=== PATIENT | female | born 1940 | race Caucasian/White ===

== ENCOUNTER → 2016-11-20 | Outpatient (REF) | payer MEDICARE, BC ==
[2016-11-20 13:29] LABS: ALBUMIN 4.4 GM/DL (3.2-5.2); ALBUMIN/GLOBULIN RATIO 1.22 (1.00-1.93); ALKALINE PHOSPHATASE 81 U/L (45-117); ALT/SGPT 31 U/L (12-78); ANION GAP 8 MEQ/L (8-16); AST/SGOT 21 U/L (15-37); BILIRUBIN,TOTAL 0.7 MG/DL (0.2-1.0); BLOOD UREA NITROGEN 20 MG/DL (7-18); CALCIUM LEVEL 10.3 MG/DL (8.8-10.2); CARBON DIOXIDE LEVEL 31 MEQ/L (21-32); CHLORIDE LEVEL 103 MEQ/L (98-107); CHOLESTEROL LEVEL 279 MG/DL (<200); CREATININE FOR GFR 0.78 MG/DL (0.55-1.02); GLOMERULAR FILTRATION RATE > 60.0 (>39); GLUCOSE, FASTING 90 MG/DL (83-110); POTASSIUM SERUM 4.1 MEQ/L (3.5-5.1); SODIUM LEVEL 142 MEQ/L (136-145); TRIGLYCERIDES LEVEL 90 MG/DL (<150)
== END ==
LOC: M SFHCPLAZ 09:46
PROVIDERS: ATTEND Internal Medicine
DX: I10 Essential (primary) hypertension (principal); E78.00 Pure hypercholesterolemia, unspecified

== ENCOUNTER → 2017-11-15 | Outpatient (REF) | payer MEDICARE, BC ==
[2017-11-15 11:59] LABS: HEMATOCRIT 42.9 % (36.0-47.0); HEMOGLOBIN 14.3 g/dl (12.0-15.5); MEAN CORPUSCULAR HGB CONC 33.3 g/dl (32.0-36.5); MEAN CORPUSCULAR VOLUME 92.9 fl (80.0-96.0); PLATELET COUNT, AUTOMATED 275 10^3/uL (150-450); RED BLOOD COUNT 4.62 10^6/uL (4.00-5.40); RED CELL DISTRIBUTION WIDTH 12.6 % (11.5-14.5); WHITE BLOOD COUNT 5.7 10^3/uL (4.0-10.0)
[2017-11-15 12:16] LABS: ALBUMIN 3.9 GM/DL (3.2-5.2); ALKALINE PHOSPHATASE 73 U/L (45-117); ALT/SGPT 27 U/L (12-78); ANION GAP 9 MEQ/L (8-16); AST/SGOT 19 U/L (7-37); BILIRUBIN,TOTAL 0.6 MG/DL (0.2-1.0); BLOOD UREA NITROGEN 23 MG/DL (7-18); CALCIUM LEVEL 9.3 MG/DL (8.8-10.2); CARBON DIOXIDE LEVEL 29 MEQ/L (21-32); CHLORIDE LEVEL 107 MEQ/L (98-107); CHOLESTEROL LEVEL 235 MG/DL (<200); CHOLESTEROL RISK RATIO 2.008 (<5); CREATININE FOR GFR 0.84 MG/DL (0.55-1.30); GLOMERULAR FILTRATION RATE > 60.0 (>39); GLUCOSE, FASTING 95 MG/DL (70-100); HDL CHOLESTEROL 117 MG/DL (>40); LDL CHOLESTEROL 102.4 MG/DL (<100); NON-HDL-C 118 MG/DL; POTASSIUM SERUM 3.7 MEQ/L (3.5-5.1); SODIUM LEVEL 145 MEQ/L (136-145); TOTAL PROTEIN 6.9 GM/DL (6.4-8.2); TRIGLYCERIDES LEVEL 78 MG/DL (<150)
== END ==
LOC: M SFHCPLAZ 07:45
DX: Z85.820 Personal history of malignant melanoma of skin (principal); I10 Essential (primary) hypertension; E78.00 Pure hypercholesterolemia, unspecified
CPT/HCPCS: 83735

== ENCOUNTER → 2017-11-26 | Outpatient (CLI) | payer MEDICARE, BC | LOC: M WHC 07:51 | DX: Z12.31 Encounter for screening mammogram for malignant neoplasm of breast (principal) | CPT/HCPCS: 77067 ==

== ENCOUNTER → 2018-11-18 | Outpatient (REF) | payer MEDICARE, BC ==
[2018-11-18 10:55] LABS: HEMATOCRIT 43.1 % (36.0-47.0); HEMOGLOBIN 14.2 g/dl (12.0-15.5); MEAN CORPUSCULAR HEMOGLOBIN 30.6 pg (27.0-33.0); MEAN CORPUSCULAR HGB CONC 32.9 g/dl (32.0-36.5); MEAN CORPUSCULAR VOLUME 92.9 fl (80.0-96.0); PLATELET COUNT, AUTOMATED 291 10^3/uL (150-450); RED BLOOD COUNT 4.64 10^6/uL (4.00-5.40); WHITE BLOOD COUNT 6.4 10^3/uL (4.0-10.0)
[2018-11-18 11:09] LABS: ALBUMIN 3.9 GM/DL (3.2-5.2); ALT/SGPT 26 U/L (12-78); BILIRUBIN,TOTAL 0.6 MG/DL (0.2-1.0); BLOOD UREA NITROGEN 15 MG/DL (7-18); CALCIUM LEVEL 9.6 MG/DL (8.8-10.2); CARBON DIOXIDE LEVEL 31 MEQ/L (21-32); CHLORIDE LEVEL 104 MEQ/L (98-107); CHOLESTEROL LEVEL 240 MG/DL (<200); GLOMERULAR FILTRATION RATE > 60.0 (>32); GLUCOSE, FASTING 100 MG/DL (70-100); HDL CHOLESTEROL 120 MG/DL (>40); LDL CHOLESTEROL 102 MG/DL (<100); MAGNESIUM LEVEL 2.1 MG/DL (1.8-2.4); NON-HDL-C 120 MG/DL; POTASSIUM SERUM 3.9 MEQ/L (3.5-5.1); SODIUM LEVEL 142 MEQ/L (136-145); TOTAL PROTEIN 6.9 GM/DL (6.4-8.2); TRIGLYCERIDES LEVEL 89 MG/DL (<150)
[2018-11-18 11:10] LABS: TOTAL 25(OH) VITAMIN D 50.9 NG/ML (30.0-100.0)
== END ==
LOC: M SFHCPLAZ 07:46
PROVIDERS: ATTEND Internal Medicine
DX: Z85.820 Personal history of malignant melanoma of skin (principal); I10 Essential (primary) hypertension; E78.00 Pure hypercholesterolemia, unspecified; F34.1 Dysthymic disorder; M81.0 Age-related osteoporosis without current pathological fracture

== ENCOUNTER → 2019-11-25 | Outpatient (REF) | payer MEDICARE, BC ==
[2019-12-26 10:44] LABS: HEMATOCRIT 45.4 % (36.0-47.0); MEAN CORPUSCULAR HEMOGLOBIN 30.9 pg (27.0-33.0); MEAN CORPUSCULAR VOLUME 93.4 fl (80.0-96.0); PLATELET COUNT, AUTOMATED 287 10^3/uL (150-450); RED BLOOD COUNT 4.86 10^6/uL (4.00-5.40); WHITE BLOOD COUNT 5.9 10^3/uL (4.0-10.0)
[2020-01-09 10:33] LABS: ALBUMIN 4.2 GM/DL (3.2-5.2); ALT/SGPT 25 U/L (12-78); BILIRUBIN,TOTAL 0.6 MG/DL (0.2-1.0); BLOOD UREA NITROGEN 27 MG/DL (7-18); CALCIUM LEVEL 10.2 MG/DL (8.8-10.2); CARBON DIOXIDE LEVEL 32 MEQ/L (21-32); CHLORIDE LEVEL 106 MEQ/L (98-107); CHOLESTEROL LEVEL 260 MG/DL (<200); CREATININE FOR GFR 0.86 MG/DL (0.55-1.30); GLOMERULAR FILTRATION RATE > 60.0 (>32); GLUCOSE, FASTING 114 MG/DL (70-100); HDL CHOLESTEROL 114 MG/DL (>40); LDL CHOLESTEROL 129 MG/DL (<100); NON-HDL-C 146 MG/DL; POTASSIUM SERUM 4.9 MEQ/L (3.5-5.1); SODIUM LEVEL 142 MEQ/L (136-145); TOTAL PROTEIN 7.2 GM/DL (6.4-8.2); TRIGLYCERIDES LEVEL 85 MG/DL (<150)
== END ==
LOC: M SFHCPLAZ 06:59
PROVIDERS: ATTEND Internal Medicine
DX: E78.00 Pure hypercholesterolemia, unspecified (principal); M81.0 Age-related osteoporosis without current pathological fracture; I10 Essential (primary) hypertension

== ENCOUNTER → 2020-05-12 | Outpatient (REF) | payer MEDICARE, BC ==
[2020-05-12 15:02] LABS: ALBUMIN 4.1 GM/DL (3.2-5.2); ALT/SGPT 25 U/L (12-78); BILIRUBIN,TOTAL 0.7 MG/DL (0.2-1.0); BLOOD UREA NITROGEN 28 MG/DL (7-18); CALCIUM LEVEL 10.3 MG/DL (8.8-10.2); CARBON DIOXIDE LEVEL 33 MEQ/L (21-32); CHLORIDE LEVEL 105 MEQ/L (98-107); CHOLESTEROL LEVEL 262 MG/DL (<200); CHOLESTEROL RISK RATIO 2.298 (<5); CREATININE FOR GFR 0.93 MG/DL (0.55-1.30); GLOMERULAR FILTRATION RATE > 60.0 (>32); GLUCOSE, FASTING 101 MG/DL (70-100); HDL CHOLESTEROL 114 MG/DL (>40); LDL CHOLESTEROL 134 MG/DL (<100); NON-HDL-C 148 MG/DL; POTASSIUM SERUM 4.1 MEQ/L (3.5-5.1); SODIUM LEVEL 143 MEQ/L (136-145); TOTAL PROTEIN 6.8 GM/DL (6.4-8.2); TRIGLYCERIDES LEVEL 72 MG/DL (<150)
== END ==
LOC: M PLALAB 08:25
PROVIDERS: ATTEND Internal Medicine
DX: E78.00 Pure hypercholesterolemia, unspecified (principal); I10 Essential (primary) hypertension; Z11.59 Encounter for screening for other viral diseases
CPT/HCPCS: 36415; 80053; 80061; 83735; G0472

== ENCOUNTER → 2020-06-01 | Outpatient (CLI) | payer MEDICARE, BC ==
--- NOTE | 2020-06-01 10:34 | REPMRS ---
Patient History The patient states she has not had a clinical breast exam in over a year. No known family history of cancer. Digital Woman Screen Mammo: June 01, 2020 - Exam #: [id number] Bilateral CC and MLO view(s) were taken. Technologist: Linda Gilman, Technologist Prior study comparison: November 26, 2017, bilateral digital woman screen mammo performed at [facility]. November 17, 2015, digital woman screen mammo performed at [facility]. June 04, 2014, digital woman screen mammo performed at [facility]. FINDINGS: The breast tissue is heterogeneously dense. This may lower the sensitivity of mammography. The Volpara volumetric breast density category is: C. There is a moderate amount of heterogeneously dense fibroglandular tissue which is fairly symmetric. There is no interval development of dominant mass, architectural distortion, or grouped microcalcification typical of malignancy. There has been no change in the appearance of the mammogram from the prior studies. 3-D tomosynthesis shows no additional findings. Assessment: BI-RADS/ACR category 1 mammogram. Negative Mammogram. Recommendation Routine screening mammogram of both breasts in 1 year (for women over age 40). This patient's [facility] Lifetime Breast Cancer RIsk is estimated at 1.4 %. This mammogram was interpreted with the aid of an FDA-approved computer-aided dectection system. Electronically Signed By: Anmol Dimas MD 06/01/20 [id number]
--- NOTE | 2020-06-01 10:41 | DEXAMM ---
INDICATION: M81.0 OSTEOPOROSIS. COMPARISON: Multiple prior studies the most recent of which is from November 17, 2015. The most remote is dated 31 May 2000.. TECHNIQUE: Bone density was measured using dual-energy x-ray absorptionmetry (DEXA). FINDINGS: AP SPINE L1-L4 BMD 0.952 g/cm2 Young Adult T-Score -2.0 Age Matched Z-Score -0.1. LT FEMUR, TOTAL BMD 0.703 g/cm2 Young Adult T-Score -2.4 Age Matched Z-Score -0.3. LT NECK BMD 0.818 g/cm2 Young Adult T-Score -1.6 Age Matched Z-Score 0.6. RT FEMUR, TOTAL BMD 0.681 g/cm2 Young Adult T-Score -2.6 Age Matched Z-Score -0.5. RT NECK BMD 0.776 g/cm2 Young Adult T-Score -1.9 Age Matched Z-Score 0.3. IMPRESSION: There is low bone density of the spine. A levoconvex lumbar scoliosis is again seen. There is low bone density of the left hip. There is osteoporosis of the right hip. The density of the spine has increased 16.0% since the initial exam on 31 May 2000. The density of the spine increased 13.1% since most recent exam on November 17, 2015. The density of the left hip has increased 5.6% since initial exam on May 31, 2000. The density of the left hip has decreased 3.2% since most recent exam on November 17, 2015. The density of the right hip has decreased 2.6% since the initial exam on May 31, 2000. The density of the right hip has decreased 1.6% since the most recent exam on November 17, 2015. FOLLOW-UP: Recommendation for the next bone density exam: 2 years. <Electronically signed by Anmol Dimas > 06/01/20 [id number]
== END ==
LOC: M WHC 09:22
PROVIDERS: ATTEND Internal Medicine
DX: Z12.31 Encounter for screening mammogram for malignant neoplasm of breast (principal); M81.0 Age-related osteoporosis without current pathological fracture; M85.88 Other specified disorders of bone density and structure, other site; M85.852 Other specified disorders of bone density and structure, left thigh

== ENCOUNTER → 2020-11-21 | Outpatient (CLI) | payer MEDICARE, BC ==
[2020-11-21 10:49] LABS: BASO % 0.3 % (0.0-1.0); EOS # 0.2 10^3/uL (0.0-0.5); EOS % 2.4 % (0.0-3.0); HEMATOCRIT 41.9 % (36.0-47.0); HEMOGLOBIN 13.8 g/dl (12.0-15.5); LYMPH % 15.1 % (24.0-44.0); MEAN CORPUSCULAR HEMOGLOBIN 31.2 pg (27.0-33.0); MEAN CORPUSCULAR HGB CONC 32.9 g/dl (32.0-36.5); MEAN CORPUSCULAR VOLUME 94.6 fl (80.0-96.0); MONO # 0.7 10^3/uL (0.0-0.8); MONO % 10.8 % (2.0-8.0); NEUTROPHILS # 4.8 10^3/uL (1.5-8.5); NEUTROPHILS % 70.8 % (36.0-66.0); PLATELET COUNT, AUTOMATED 251 10^3/uL (150-450); RED BLOOD COUNT 4.43 10^6/uL (4.00-5.40); WHITE BLOOD COUNT 6.7 10^3/uL (4.0-10.0)
[2020-11-21 12:01] LABS: BLOOD UREA NITROGEN 26 MG/DL (7-18); CARBON DIOXIDE LEVEL 27 MEQ/L (21-32); CHLORIDE LEVEL 108 MEQ/L (98-107); CREATININE FOR GFR 0.85 MG/DL (0.55-1.30); GLOMERULAR FILTRATION RATE > 60.0 (>32); GLUCOSE, FASTING 97 MG/DL (70-100); POTASSIUM SERUM 3.9 MEQ/L (3.5-5.1); SODIUM LEVEL 142 MEQ/L (136-145)
[2020-11-21 12:02] LABS: ALT/SGPT 28 U/L (12-78); BILIRUBIN,TOTAL 0.6 MG/DL (0.2-1.0); CALCIUM LEVEL 9.3 MG/DL (8.8-10.2); CHOLESTEROL LEVEL 242 MG/DL (<200); HDL CHOLESTEROL 112 MG/DL (>40); LDL CHOLESTEROL 110 MG/DL (<100); MAGNESIUM LEVEL 2.2 MG/DL (1.8-2.4); NON-HDL-C 130 MG/DL; THYROID STIMULATING HORMONE 0.927 uIU/ML (0.358-3.740); TOTAL PROTEIN 6.6 GM/DL (6.4-8.2); TRIGLYCERIDES LEVEL 99 MG/DL (<150)
== END ==
LOC: M PLALAB 08:48
PROVIDERS: ATTEND Internal Medicine
DX: I10 Essential (primary) hypertension (principal); E78.00 Pure hypercholesterolemia, unspecified; F34.1 Dysthymic disorder; Z85.820 Personal history of malignant melanoma of skin

== ENCOUNTER → 2021-05-26 | Outpatient (CLI) | payer MEDICARE, BC ==
[2021-05-26 10:47] LABS: BASO % 0.4 % (0.0-1.0); EOS # 0.1 10^3/uL (0.0-0.5); EOS % 1.2 % (0.0-3.0); HEMATOCRIT 44.2 % (36.0-47.0); HEMOGLOBIN 14.7 g/dl (12.0-15.5); LYMPH # 1.2 10^3/uL (1.5-5.0); LYMPH % 21.1 % (24.0-44.0); MEAN CORPUSCULAR HEMOGLOBIN 30.5 pg (27.0-33.0); MEAN CORPUSCULAR HGB CONC 33.3 g/dl (32.0-36.5); MEAN CORPUSCULAR VOLUME 91.7 fl (80.0-96.0); MONO # 0.7 10^3/uL (0.0-0.8); MONO % 11.9 % (2.0-8.0); NEUTROPHILS # 3.7 10^3/uL (1.5-8.5); PLATELET COUNT, AUTOMATED 303 10^3/uL (150-450); RED BLOOD COUNT 4.82 10^6/uL (4.00-5.40); WHITE BLOOD COUNT 5.6 10^3/uL (4.0-10.0)
[2021-05-26 11:43] LABS: ALBUMIN 4.3 GM/DL (3.2-5.2); ALT/SGPT 28 U/L (12-78); BILIRUBIN,TOTAL 0.8 MG/DL (0.2-1.0); BLOOD UREA NITROGEN 19 MG/DL (7-18); CALCIUM LEVEL 10.5 MG/DL (8.8-10.2); CARBON DIOXIDE LEVEL 26 MEQ/L (21-32); CHLORIDE LEVEL 105 MEQ/L (98-107); CREATININE FOR GFR 0.86 MG/DL (0.55-1.30); GLOMERULAR FILTRATION RATE > 60.0 (>32); GLUCOSE, FASTING 119 MG/DL (70-100); POTASSIUM SERUM 3.7 MEQ/L (3.5-5.1); SODIUM LEVEL 141 MEQ/L (136-145); TOTAL PROTEIN 7.3 GM/DL (6.4-8.2)
[2021-05-26 11:44] LABS: TOTAL 25(OH) VITAMIN D 62.1 NG/ML (30.0-100.0)
== END ==
LOC: M PLALAB 08:19
PROVIDERS: ATTEND Internal Medicine
DX: M81.0 Age-related osteoporosis without current pathological fracture (principal); I10 Essential (primary) hypertension; Z85.820 Personal history of malignant melanoma of skin

== ENCOUNTER → 2021-11-28 | Outpatient (CLI) | payer MEDICARE, BC ==
[2021-11-28 11:11] LABS: BASO % 0.7 % (0.0-1.0); EOS # 0.1 10^3/uL (0.0-0.5); EOS % 2.4 % (0.0-3.0); HEMATOCRIT 44.3 % (36.0-47.0); HEMOGLOBIN 14.4 g/dl (12.0-15.5); LYMPH # 1.2 10^3/uL (1.5-5.0); LYMPH % 19.7 % (24.0-44.0); MEAN CORPUSCULAR HEMOGLOBIN 30.5 pg (27.0-33.0); MEAN CORPUSCULAR HGB CONC 32.5 g/dl (32.0-36.5); MEAN CORPUSCULAR VOLUME 93.9 fl (80.0-96.0); MONO # 0.7 10^3/uL (0.0-0.8); MONO % 11.2 % (2.0-8.0); NEUTROPHILS # 3.9 10^3/uL (1.5-8.5); NEUTROPHILS % 65.7 % (36.0-66.0); PLATELET COUNT, AUTOMATED 298 10^3/uL (150-450); RED BLOOD COUNT 4.72 10^6/uL (4.00-5.40); WHITE BLOOD COUNT 5.9 10^3/uL (4.0-10.0)
[2021-11-28 12:05] LABS: ALT/SGPT 30 U/L (12-78); BILIRUBIN,TOTAL 0.7 MG/DL (0.2-1.0); BLOOD UREA NITROGEN 22 MG/DL (7-18); CALCIUM LEVEL 10.2 MG/DL (8.8-10.2); CARBON DIOXIDE LEVEL 29 MEQ/L (21-32); CHLORIDE LEVEL 106 MEQ/L (98-107); CREATININE FOR GFR 0.93 MG/DL (0.55-1.30); GLOMERULAR FILTRATION RATE > 60.0 (>32); GLUCOSE, FASTING 96 MG/DL (70-100); SODIUM LEVEL 141 MEQ/L (136-145)
[2021-11-28 12:52] LABS: TOTAL 25(OH) VITAMIN D 64.5 NG/ML (30.0-100.0)
== END ==
LOC: M PLALAB 08:43
PROVIDERS: ATTEND Internal Medicine
DX: I10 Essential (primary) hypertension (principal); Z85.820 Personal history of malignant melanoma of skin; M81.0 Age-related osteoporosis without current pathological fracture

== ENCOUNTER → 2022-06-14 | Outpatient (CLI) | payer MEDICARE, BC ==
[2022-06-14 11:09] LABS: HEMATOCRIT 39.9 % (36.0-47.0); HEMOGLOBIN 13.1 g/dl (12.0-15.5); MEAN CORPUSCULAR HEMOGLOBIN 30.7 pg (27.0-33.0); MEAN CORPUSCULAR HGB CONC 32.8 g/dl (32.0-36.5); MEAN CORPUSCULAR VOLUME 93.4 fl (80.0-96.0); PLATELET COUNT, AUTOMATED 297 10^3/uL (150-450); RED BLOOD COUNT 4.27 10^6/uL (4.00-5.40); WHITE BLOOD COUNT 6.4 10^3/uL (4.0-10.0)
[2022-06-14 11:32] LABS: C REACTIVE PROTEIN QUANTITATIV < 0.40 MG/DL (<1.0)
[2022-06-14 11:34] LABS: CREATININE, URINE 21.7 MG/DL
[2022-06-14 11:35] LABS: MAU/CREAT RATIO 41.4 MCG/MG (0.0-30.0)
[2022-06-14 11:41] LABS: ALKALINE PHOSPHATASE 70 U/L (46-116); ALT/SGPT 23 U/L (7.0-40); AST/SGOT 21 U/L (<34); BILIRUBIN,TOTAL 0.7 MG/DL (0.3-1.2); BLOOD UREA NITROGEN 28 MG/DL (9-23); CALCIUM LEVEL 9.6 MG/DL (8.3-10.6); CARBON DIOXIDE LEVEL 29 MMOL/L (20-31); CHLORIDE LEVEL 106 MMOL/L (98-107); CHOLESTEROL LEVEL 244 MG/DL (<200); CHOLESTEROL RISK RATIO 2.32 (<5); CREATININE FOR GFR 0.83 MG/DL (0.55-1.30); FREE T4 1.48 NG/DL (0.89-1.76); GLOMERULAR FILTRATION RATE > 60.0 (>32); GLUCOSE, FASTING 104 MG/DL (74-106); HDL CHOLESTEROL 104.9 MG/DL (>40); LDL CHOLESTEROL 124.9 MG/DL (<100); NON-HDL-C 139 MG/DL; POTASSIUM SERUM 3.9 MMOL/L (3.5-5.1); SODIUM LEVEL 141 MMOL/L (136-145); TOTAL 25(OH) VITAMIN D 46.4 NG/ML (20.0-100.0); TOTAL PROTEIN 6.7 G/DL (5.7-8.2); TRIGLYCERIDES LEVEL 71 MG/DL (<150); VITAMIN B12 LEVEL 472 PG/ML (211-911)
[2022-06-14 11:44] LABS: HEMOGLOBIN A1c 5.5 % (4.0-6.0)
== END ==
LOC: M PLALAB 08:22
PROVIDERS: ATTEND Internal Medicine Hematology
DX: E78.00 Pure hypercholesterolemia, unspecified (principal); Z79.899 Other long term (current) drug therapy

== ENCOUNTER → 2022-06-20 | Outpatient (CLI) | payer MEDICARE, BC | LOC: M WHC 09:21 | PROVIDERS: ATTEND Internal Medicine Hematology | DX: M81.0 Age-related osteoporosis without current pathological fracture (principal); M85.852 Other specified disorders of bone density and structure, left thigh ==

== ENCOUNTER → 2022-12-20 | Outpatient (CLI) | payer MEDICARE, BC ==
[2022-12-20 17:52] LABS: HEMATOCRIT 42.1 % (36.0-47.0); HEMOGLOBIN 13.6 g/dl (12.0-15.5); MEAN CORPUSCULAR HEMOGLOBIN 30.2 pg (27.0-33.0); MEAN CORPUSCULAR HGB CONC 32.3 g/dl (32.0-36.5); MEAN CORPUSCULAR VOLUME 93.3 fl (80.0-96.0); PLATELET COUNT, AUTOMATED 304 10^3/uL (150-450); RED BLOOD COUNT 4.51 10^6/uL (4.00-5.40); WHITE BLOOD COUNT 7.6 10^3/uL (4.0-10.0)
[2022-12-20 17:58] LABS: CREATININE, URINE 25.2 MG/DL; MAU/CREAT RATIO 95.2 MCG/MG (0.0-30.0)
[2022-12-20 18:04] LABS: HEMOGLOBIN A1c 5.3 % (4.0-6.0)
[2022-12-20 18:13] LABS: ALKALINE PHOSPHATASE 90 U/L (46-116); ALT/SGPT 20 U/L (7.0-40); AST/SGOT 17 U/L (<34); BILIRUBIN,TOTAL 0.4 MG/DL (0.3-1.2); BLOOD UREA NITROGEN 21 MG/DL (9-23); C REACTIVE PROTEIN QUANTITATIV < 0.40 MG/DL (<1.0); CALCIUM LEVEL 9.7 MG/DL (8.3-10.6); CARBON DIOXIDE LEVEL 26 MMOL/L (20-31); CHLORIDE LEVEL 109 MMOL/L (98-107); CREATININE FOR GFR 0.77 MG/DL (0.55-1.30); FREE T4 1.39 NG/DL (0.89-1.76); GLOMERULAR FILTRATION RATE > 60.0 (>32); GLUCOSE, FASTING 86 MG/DL (74-106); POTASSIUM SERUM 4.4 MMOL/L (3.5-5.1); SODIUM LEVEL 142 MMOL/L (136-145); THYROID STIMULATING HORMONE 1.566 uIU/ML (0.55-4.78); TOTAL PROTEIN 6.8 G/DL (5.7-8.2)
[2022-12-20 18:15] LABS: TOTAL 25(OH) VITAMIN D 74.9 NG/ML (20.0-100.0); VITAMIN B12 LEVEL 924 PG/ML (211-911)
== END ==
LOC: M PLALAB 15:29
PROVIDERS: ATTEND Internal Medicine Hematology
DX: E78.00 Pure hypercholesterolemia, unspecified (principal); R73.01 Impaired fasting glucose; M81.0 Age-related osteoporosis without current pathological fracture

== ENCOUNTER 2023-05-21 09:48 | Day surgery (SDC) | payer MEDICARE, BC ==
[~2023-05-21] VITALS: Ht 144.8 cm; Wt 47.8 kg
[~2023-05-21 09:48] MED LIST: ALPR0.25 PO; AMLO1TAB24 PO; CALC600T61 PO; DORZ2SOL5 OU; GNP250TA9 PO; LOSA50TA28 PO; OMEG10002 PO; THERTAB52 PO; VITA-199 PO; VITA100018 PO; XALA0.007 OU
[2023-05-21] MEDS: OFLOXACIN 0.3 % (OCUFLOX) OPTH SOL 5ML OD SCH (10:21)
[2023-05-21] MEDS: TROPICAMIDE 1% OPHTH SOLN 15ML OD SCH (10:22)
[2023-05-21] MEDS: PROPARACAINE 0.5% OPHTH SOL 15ML OD ONE (10:22)
[2023-05-21] MEDS: CYCLOPENTOLATE 1% OPHTH SOLN 2ML BTL OD SCH (10:22)
[2023-05-21] MEDS: PHENYLEPHRINE 2.5% OPHTH SOL 2ML OD SCH (10:22)
[2023-05-21] MEDS ORDERED: fentaNYL 100 MCG/2 ML INJECTION As Ordered ONE (11:16)
[2023-05-21] MEDS ORDERED: MIDAZOLAM INJ 2MG/2ML VIAL As Ordered ONE (11:16)
[2023-05-21] MEDS: LIDOCAINE 1% SDV 5ML VIAL As Ordered ONE (11:21)
[2023-05-21] MEDS: BSS IRR 500ML/OMIDRIA 4ML IRR BAG (OR ONLY) As Ordered ONE (11:22)
[2023-05-21] MEDS: CEFUROXIME 1MG/0.1ML INTRACAMERAL INJ As Ordered ONE (11:22)
[2023-05-21] MEDS: PROVISC 10 MG/ML 0.85ML SYRINGE As Ordered ONE (11:22)
[2023-05-21 11:35] VITALS: BP 155/74; TEMP 97.8; O2SAT 96
== END 2023-05-21 12:00 | disposition home or self-care (01) ==
LOC: M SDC 09:48
PROVIDERS: ATTEND Ophthalmology
DX: H25.11 Age-related nuclear cataract, right eye (principal); H40.10X1 Unspecified open-angle glaucoma, mild stage; I10 Essential (primary) hypertension; F41.9 Anxiety disorder, unspecified; M19.90 Unspecified osteoarthritis, unspecified site; M81.0 Age-related osteoporosis without current pathological fracture; Z79.899 Other long term (current) drug therapy
CPT/HCPCS: 66174; 66984; A4649; C1889; J0697; J1097; J2250; J3010; V2632

== ENCOUNTER → 2023-06-14 | Outpatient (CLI) | payer MEDICARE, BC ==
[2023-06-14 11:57] LABS: HEMATOCRIT 44.6 % (36.0-47.0); HEMOGLOBIN 14.6 g/dl (12.0-15.5); MEAN CORPUSCULAR HEMOGLOBIN 30.4 pg (27.0-33.0); MEAN CORPUSCULAR HGB CONC 32.7 g/dl (32.0-36.5); MEAN CORPUSCULAR VOLUME 92.9 fl (80.0-96.0); PLATELET COUNT, AUTOMATED 284 10^3/uL (150-450); WHITE BLOOD COUNT 6.2 10^3/uL (4.0-10.0)
[2023-06-14 11:58] LABS: CREATININE, URINE 20.8 MG/DL; MAU/CREAT RATIO 52.8 MCG/MG (0.0-30.0)
[2023-06-14 12:17] LABS: C REACTIVE PROTEIN QUANTITATIV < 0.40 MG/DL (<1.0)
[2023-06-14 12:19] LABS: ALBUMIN 3.9 G/DL (3.2-5.2); ALKALINE PHOSPHATASE 76 U/L (46-116); ALT/SGPT 20 U/L (7.0-40); AST/SGOT 17 U/L (<34); BILIRUBIN,TOTAL 0.7 MG/DL (0.3-1.2); BLOOD UREA NITROGEN 20 MG/DL (9-23); CALCIUM LEVEL 9.5 MG/DL (8.3-10.6); CARBON DIOXIDE LEVEL 29 MMOL/L (20-31); CHLORIDE LEVEL 109 MMOL/L (98-107); CHOLESTEROL LEVEL 246 MG/DL (<200); CHOLESTEROL RISK RATIO 2.52 (<5); CREATININE FOR GFR 0.85 MG/DL (0.55-1.30); GLOMERULAR FILTRATION RATE > 60.0 (>32); GLUCOSE, FASTING 95 MG/DL (74-106); HDL CHOLESTEROL 97.6 MG/DL (>40); NON-HDL-C 148.4 MG/DL; POTASSIUM SERUM 4.6 MMOL/L (3.5-5.1); SODIUM LEVEL 145 MMOL/L (136-145); THYROID STIMULATING HORMONE 2.495 uIU/ML (0.55-4.78); TOTAL 25(OH) VITAMIN D 102.2 NG/ML (20.0-100.0); TOTAL PROTEIN 6.8 G/DL (5.7-8.2); TRIGLYCERIDES LEVEL 82 MG/DL (<150)
[2023-06-14 12:20] LABS: FREE T4 1.35 NG/DL (0.89-1.76)
[2023-06-14 12:21] LABS: VITAMIN B12 LEVEL 1576 PG/ML (211-911)
[2023-06-14 12:31] LABS: HEMOGLOBIN A1c 5.5 % (4.0-6.0)
== END ==
LOC: M PLALAB 08:27
PROVIDERS: ATTEND Internal Medicine Hematology
DX: E78.00 Pure hypercholesterolemia, unspecified (principal); Z79.899 Other long term (current) drug therapy

== ENCOUNTER 2023-07-02 09:41 | Day surgery (SDC) | payer MEDICARE, BC ==
[~2023-07-02] VITALS: Ht 144.8 cm; Wt 48.0 kg
[2023-07-02] MEDS ORDERED: HYDR-3490 PO (10:22)
[2023-07-02] MEDS: OFLOXACIN 0.3 % (OCUFLOX) OPTH SOL 5ML OS SCH (10:26)
[2023-07-02] MEDS: ATROPINE SULFATE 1% OPHTH SOLN 2ML BTL OS SCH (10:27)
[2023-07-02] MEDS: PHENYLEPHRINE 2.5% OPHTH SOL 2ML OS SCH (10:27)
[2023-07-02] MEDS: PROPARACAINE 0.5% OPHTH SOL 15ML OS ONE (10:27)
[2023-07-02] MEDS: TROPICAMIDE 1% OPHTH SOLN 15ML OS SCH (10:27)
[2023-07-02] MEDS ORDERED: fentaNYL 100 MCG/2 ML INJECTION As Ordered ONE (11:13)
[2023-07-02] MEDS: CEFUROXIME 1MG/0.1ML INTRACAMERAL INJ As Ordered ONE (11:22)
[2023-07-02] MEDS: LIDOCAINE 1% SDV 5ML VIAL As Ordered ONE (11:22)
[2023-07-02] MEDS: BSS IRR 500ML/OMIDRIA 4ML IRR BAG (OR ONLY) As Ordered ONE (11:22)
[2023-07-02] MEDS: PROVISC 10 MG/ML 0.85ML SYRINGE As Ordered ONE (11:23)
[2023-07-02 11:30] VITALS: BP 128/65; TEMP 97.5; O2SAT 96
== END 2023-07-02 11:55 | disposition home or self-care (01) ==
LOC: M SDC 09:41
PROVIDERS: ATTEND Ophthalmology
DX: H25.12 Age-related nuclear cataract, left eye (principal); H40.10X1 Unspecified open-angle glaucoma, mild stage; I10 Essential (primary) hypertension; Z79.899 Other long term (current) drug therapy; Z98.41 Cataract extraction status, right eye
CPT/HCPCS: 66174; 66984; A4649; C1889; J0697; J1097; J3010; V2632

== ENCOUNTER 2023-11-19 19:19 | Observation (INO) | payer MEDICARE, BC ==
[~2023-11-19] VITALS: Ht 144.8 cm; Wt 47.0 kg
[~2023-11-19 19:19] MED LIST changes: -ALEV220T22 PO; -AMLO1TAB25 PO; -MAGN400T35 PO; -MULT-40 PO; -VITA20004 PO
[2023-11-19 19:54] LABS: BASO % 0.2 % (0.0-1.0); EOS # 0.1 10^3/uL (0.0-0.5); EOS % 0.3 % (0.0-3.0); HEMATOCRIT 33.2 % (36.0-47.0); HEMOGLOBIN 11.5 g/dl (12.0-15.5); LYMPH # 0.9 10^3/uL (1.5-5.0); LYMPH % 5.1 % (24.0-44.0); MEAN CORPUSCULAR HEMOGLOBIN 30.5 pg (27.0-33.0); MEAN CORPUSCULAR HGB CONC 34.6 g/dl (32.0-36.5); MEAN CORPUSCULAR VOLUME 88.1 fl (80.0-96.0); MONO # 1.8 10^3/uL (0.0-0.8); MONO % 10.6 % (2.0-8.0); NEUTROPHILS # 13.8 10^3/uL (1.5-8.5); NEUTROPHILS % 82.8 % (36.0-66.0); PLATELET COUNT, AUTOMATED 329 10^3/uL (150-450); RED BLOOD COUNT 3.77 10^6/uL (4.00-5.40); WHITE BLOOD COUNT 16.7 10^3/uL (4.0-10.0)
[2023-11-19 20:27] LABS: CK-MB VALUE MASS 1.9 NG/ML (<3.6); MB/CK RELATIVE INDEX 4.04 (< OR =4)
[2023-11-19 20:28] LABS: ALBUMIN 2.8 G/DL (3.2-5.2); BILIRUBIN,DIRECT 0.2 MG/DL (<0.4); BILIRUBIN,TOTAL 0.5 MG/DL (0.3-1.2); CALCIUM LEVEL 8.8 MG/DL (8.3-10.6); CREATININE FOR GFR 1.64 MG/DL (0.55-1.30); GLOMERULAR FILTRATION RATE 31.7 (>32); POTASSIUM SERUM 3.3 MMOL/L (3.5-5.1); TOTAL PROTEIN 6.4 G/DL (5.7-8.2)
[2023-11-19 23:08] LABS: CK-MB VALUE MASS 1.8 NG/ML (<3.6); MB/CK RELATIVE INDEX 2.85 (< OR =4)
[2023-11-20] MEDS: NS 1,000 ML IV ONE (00:25)
[2023-11-20] MEDS ORDERED: ACETAMINOPHEN TAB 650MG DOSE (2X325MG) PO PRN (02:45)
[2023-11-20] MEDS ORDERED: AMLO1TAB25 PO (02:54)
[2023-11-20] MEDS ORDERED: MAGN400T35 PO (02:54)
[2023-11-20] MEDS ORDERED: MULT-40 PO (02:54)
[2023-11-20] MEDS ORDERED: VITA20004 PO (02:54)
[2023-11-20] MEDS ORDERED: ALEV220T22 PO (02:54)
[2023-11-20] MEDS ORDERED: HOME MED LIST COMPLETE! XX SCH (02:55)
[2023-11-20] MEDS: POTASSIUM CHLORIDE 10% LIQ 20MEQ/15ML UDC PO ONE (03:04)
[2023-11-20] MEDS: NS 1,000 ML IV SCH (03:30)
[2023-11-20 04:32] VITALS: BP 136/66; TEMP 98.1; O2SAT 97
[2023-11-20 05:17] VITALS: BP_SYST 123; BP_SYST 142; BP_DIAS 68; BP_DIAS 81
[2023-11-20] MEDS ORDERED: ALPRAZolam 0.25 MG TAB PO PRN ×2 (05:40)
[2023-11-20] MEDS ORDERED: PILL CUTTER 1 EACH XX PRN (06:05)
[2023-11-20 06:06] VITALS: BP 128/70; TEMP 97.9; O2SAT 96
[2023-11-20 06:08] LABS: BASO % 0.2 % (0.0-1.0); EOS % 0.2 % (0.0-3.0); HEMATOCRIT 34.7 % (36.0-47.0); HEMOGLOBIN 11.9 g/dl (12.0-15.5); LYMPH # 0.6 10^3/uL (1.5-5.0); LYMPH % 4.7 % (24.0-44.0); MEAN CORPUSCULAR HEMOGLOBIN 30.7 pg (27.0-33.0); MEAN CORPUSCULAR HGB CONC 34.3 g/dl (32.0-36.5); MEAN CORPUSCULAR VOLUME 89.4 fl (80.0-96.0); MONO # 1.3 10^3/uL (0.0-0.8); MONO % 10.6 % (2.0-8.0); NEUTROPHILS # 10.3 10^3/uL (1.5-8.5); NEUTROPHILS % 83.1 % (36.0-66.0); PLATELET COUNT, AUTOMATED 331 10^3/uL (150-450); RED BLOOD COUNT 3.88 10^6/uL (4.00-5.40); WHITE BLOOD COUNT 12.4 10^3/uL (4.0-10.0)
[2023-11-20 06:44] LABS: ALBUMIN 2.7 G/DL (3.2-5.2); BILIRUBIN,TOTAL 0.5 MG/DL (0.3-1.2); CALCIUM LEVEL 8.8 MG/DL (8.3-10.6); CREATININE FOR GFR 1.27 MG/DL (0.55-1.30); GLOMERULAR FILTRATION RATE 42.6 (>32); MAGNESIUM LEVEL 2.1 MG/DL (1.8-2.4); POTASSIUM SERUM 4.2 MMOL/L (3.5-5.1); TOTAL PROTEIN 6.2 G/DL (5.7-8.2)
[2023-11-20 08:00] VITALS: BP 132/71; TEMP 97.9; O2SAT 95
[2023-11-20] MEDS: MAGNESIUM OXIDE 400MG TAB (MAG-OX) PO SCH (09:50)
[2023-11-20] MEDS: OMEGA-3 1000MG CAPSULE PO SCH (09:50)
[2023-11-20] MEDS: HEPARIN SOD (PORCINE) 5000UNITS/ML 1ML VIAL/SYRINGE SC SCH (09:51)
[2023-11-20] MEDS: DOCUSATE SODIUM 100MG CAPSULE PO SCH (09:51)
[2023-11-20] MEDS: MULTIVITAMINS/MINERALS THERAP 1 TAB PO SCH (09:51)
[2023-11-20] MEDS: COSOPT OCUMETER PLUS 10ML (DORZOLAMIDE/TIMOLOL) OU SCH (10:58)
[2023-11-20 12:00] VITALS: BP 129/73; TEMP 97.3; O2SAT 98
[2023-11-20] MEDS ORDERED: AMLO1TAB24 PO (13:00)
== END 2023-11-20 14:31 | disposition home or self-care (01) ==
LOC: M ED 19:19 → M ED INP 19:20 → INTOOBSV 19:20 → M MSPAV 11-20 04:32
PROVIDERS: ADMIT Internal Medicine; ATTEND Internal Medicine
DX: R42 Dizziness and giddiness (principal); R53.83 Other fatigue
CPT/HCPCS: 36415; 71045; 74176; 80048; 80053; 80076; 81001; 81002; 82550; 82553; 83690; 83735; 83880; 83930; 84484; 85025; 85730; 87040; 87486; 87581; 87633; 87798; 93005; 97116; 97161; 97165; 97530; 99285; G0378; G0463

== ENCOUNTER → 2023-11-19 | Outpatient (CLI) | payer MEDICARE, BC ==
[~2023-11-19] MED LIST changes: +ALEV220T22 PO; +AMLO1TAB25 PO; +HYDR-3490 PO; +MAGN400T35 PO; +MULT-40 PO; +VITA20004 PO
[2023-11-19 10:34] LABS: BASO % 0.2 % (0.0-1.0); EOS % 0.2 % (0.0-3.0); LYMPH # 0.8 10^3/uL (1.5-5.0); MEAN CORPUSCULAR HEMOGLOBIN 30.8 pg (27.0-33.0); MEAN CORPUSCULAR HGB CONC 34.3 g/dl (32.0-36.5); MONO # 2.1 10^3/uL (0.0-0.8); MONO % 11.2 % (2.0-8.0); NEUTROPHILS # 15.8 10^3/uL (1.5-8.5); NEUTROPHILS % 83.4 % (36.0-66.0); PLATELET COUNT, AUTOMATED 320 10^3/uL (150-450); RED BLOOD COUNT 3.89 10^6/uL (4.00-5.40); WHITE BLOOD COUNT 18.9 10^3/uL (4.0-10.0)
[2023-11-19 11:07] LABS: BILIRUBIN,TOTAL 0.6 MG/DL (0.3-1.2); CALCIUM LEVEL 8.8 MG/DL (8.3-10.6); CREATININE FOR GFR 1.77 MG/DL (0.55-1.30); MAGNESIUM LEVEL 2.3 MG/DL (1.8-2.4); POTASSIUM SERUM 3.2 MMOL/L (3.5-5.1); TOTAL PROTEIN 6.6 G/DL (5.7-8.2)
[2023-11-19 15:12] LABS: APPEARANCE, URINE HAZY (CLEAR); BACTERIA, URINE AUTO NEGATIVE (NEGATIVE); BILIRUBIN, URINE AUTO NEGATIVE (NEGATIVE); BLOOD, URINE BLOOD 1+ (NEGATIVE); COLOR, URINE YELLOW (YELLOW); GLUCOSE, URINE (UA) AUTO NEGATIVE (NEGATIVE); KETONE, URINE AUTO NEGATIVE (NEGATIVE); LEUKOCYTE ESTERASE, URINE AUTO 1+ (NEGATIVE); MUCUS, URINE SMALL (NEGATIVE); NITRITE, URINE AUTO NEGATIVE (NEGATIVE); PROTEIN, URINE AUTO 1+ mg/dL (NEGATIVE); RBC, URINE AUTO 0 /HPF (0-3); SPECIFIC GRAVITY URINE AUTO 1.009 (1.002-1.035); SQUAMOUS EPITHELIAL CELL UR AU 1 /HPF (0-6); UROBILINOGEN, URINE AUTO 0.2 mg/dL (0.0-2.0); WBC, URINE AUTO 14 /HPF (0-3)
== END ==
LOC: M PLALAB 08:29
PROVIDERS: ATTEND Student in an Organized Health Care Education/Training Program
DX: R42 Dizziness and giddiness (principal); R53.83 Other fatigue

== ENCOUNTER → 2023-11-28 | Outpatient (CLI) | payer MEDICARE, BC ==
[~2023-11-28] MED LIST changes: +ALEV220T22 PO; +AMLO1TAB25 PO; +MAGN400T35 PO; +MULT-40 PO; +VITA20004 PO
[2023-11-28 13:14] LABS: BASO # 0.1 10^3/uL (0.0-0.2); BASO % 0.7 % (0.0-1.0); EOS # 0.2 10^3/uL (0.0-0.5); EOS % 1.7 % (0.0-3.0); HEMATOCRIT 34.4 % (36.0-47.0); HEMOGLOBIN 11.3 g/dl (12.0-15.5); LYMPH # 1.1 10^3/uL (1.5-5.0); LYMPH % 10.5 % (24.0-44.0); MEAN CORPUSCULAR HEMOGLOBIN 30.7 pg (27.0-33.0); MEAN CORPUSCULAR HGB CONC 32.8 g/dl (32.0-36.5); MEAN CORPUSCULAR VOLUME 93.5 fl (80.0-96.0); MONO % 9.7 % (2.0-8.0); NEUTROPHILS # 7.9 10^3/uL (1.5-8.5); NEUTROPHILS % 76.6 % (36.0-66.0); PLATELET COUNT, AUTOMATED 543 10^3/uL (150-450); RED BLOOD COUNT 3.68 10^6/uL (4.00-5.40); WHITE BLOOD COUNT 10.3 10^3/uL (4.0-10.0)
[2023-11-28 13:20] LABS: ALBUMIN 3.3 G/DL (3.2-5.2); ALKALINE PHOSPHATASE 121 U/L (46-116); ALT/SGPT 21 U/L (7.0-40); AST/SGOT 16 U/L (<34); BILIRUBIN,TOTAL 0.5 MG/DL (0.3-1.2); BLOOD UREA NITROGEN 14 MG/DL (9-23); CALCIUM LEVEL 9.8 MG/DL (8.3-10.6); CARBON DIOXIDE LEVEL 26 MMOL/L (20-31); CHLORIDE LEVEL 106 MMOL/L (98-107); CREATININE FOR GFR 0.93 MG/DL (0.55-1.30); GLOMERULAR FILTRATION RATE > 60.0 (>32); GLUCOSE, FASTING 102 MG/DL (74-106); POTASSIUM SERUM 4.4 MMOL/L (3.5-5.1); SODIUM LEVEL 138 MMOL/L (136-145)
== END ==
LOC: M PLALAB 09:46
PROVIDERS: ATTEND Internal Medicine Hematology
DX: E87.1 Hypo-osmolality and hyponatremia (principal)

== ENCOUNTER → 2023-12-19 | Outpatient (CLI) | payer MEDICARE, BC ==
[2023-12-19 15:30] LABS: BASO % 0.3 % (0.0-1.0); EOS # 0.1 10^3/uL (0.0-0.5); EOS % 1.6 % (0.0-3.0); HEMATOCRIT 37.1 % (36.0-47.0); LYMPH % 11.6 % (24.0-44.0); MEAN CORPUSCULAR HEMOGLOBIN 30.6 pg (27.0-33.0); MEAN CORPUSCULAR HGB CONC 32.3 g/dl (32.0-36.5); MEAN CORPUSCULAR VOLUME 94.6 fl (80.0-96.0); MONO # 1.1 10^3/uL (0.0-0.8); MONO % 12.6 % (2.0-8.0); NEUTROPHILS # 6.6 10^3/uL (1.5-8.5); NEUTROPHILS % 73.6 % (36.0-66.0); PLATELET COUNT, AUTOMATED 326 10^3/uL (150-450); RED BLOOD COUNT 3.92 10^6/uL (4.00-5.40); WHITE BLOOD COUNT 8.9 10^3/uL (4.0-10.0)
[2023-12-19 15:58] LABS: CREATININE FOR GFR 1.15 MG/DL (0.55-1.30); GLOMERULAR FILTRATION RATE 47.7 (>32); POTASSIUM SERUM 4.8 MMOL/L (3.5-5.1)
== END ==
LOC: M PLALAB 11:48
PROVIDERS: ATTEND Internal Medicine Hematology
DX: I10 Essential (primary) hypertension (principal); M25.531 Pain in right wrist

== ENCOUNTER 2024-08-17 10:01 | Emergency (ER) | payer BC, MEDICARE ==
[~2024-08-17] VITALS: Ht 147.3 cm; Wt 49.5 kg
[2024-08-17] MEDS ORDERED: FERR325T15 (10:16)
[2024-08-17] MEDS ORDERED: AMLO2.5T3 (10:16)
[2024-08-17] MEDS ORDERED: LOSA50TA28 (10:16)
[2024-08-17 10:41] LABS: BASO % 0.4 % (0.0-1.0); EOS # 0.2 10^3/uL (0.0-0.5); EOS % 3.1 % (0.0-3.0); HEMATOCRIT 40.3 % (36.0-47.0); HEMOGLOBIN 13.2 g/dl (12.0-15.5); LYMPH # 1.1 10^3/uL (1.5-5.0); MEAN CORPUSCULAR HEMOGLOBIN 30.4 pg (27.0-33.0); MEAN CORPUSCULAR HGB CONC 32.8 g/dl (32.0-36.5); MEAN CORPUSCULAR VOLUME 92.9 fl (80.0-96.0); NEUTROPHILS # 5.1 10^3/uL (1.5-8.5); NEUTROPHILS % 68.2 % (36.0-66.0); PLATELET COUNT, AUTOMATED 314 10^3/uL (150-450); RED BLOOD COUNT 4.34 10^6/uL (4.00-5.40); WHITE BLOOD COUNT 7.5 10^3/uL (4.0-10.0)
[2024-08-17 12:11] VITALS: BP 182/87; TEMP 96.6; O2SAT 98
== END 2024-08-17 12:44 | disposition home or self-care (01) ==
LOC: EDBD 10:01 → M ED 10:01
DX: I83.892 Varicose veins of left lower extremity with other complications (principal); I10 Essential (primary) hypertension; E78.5 Hyperlipidemia, unspecified; Z79.810 Long term (current) use of selective estrogen receptor modulators (SERMs); Z79.899 Other long term (current) drug therapy

== ENCOUNTER → 2024-10-19 | Outpatient (REF) | payer MEDICARE, BC ==
[~2024-10-19] MED LIST changes: +AMLO2.5T3; +FERR325T15; +LOSA50TA28; +VITA250T27 PO
[2024-10-19 14:25] LABS: APPEARANCE, URINE HAZY (CLEAR); BACTERIA, URINE AUTO 1+ (NEGATIVE); BILIRUBIN, URINE AUTO NEGATIVE (NEGATIVE); BLOOD, URINE BLOOD NEGATIVE (NEGATIVE); GLUCOSE, URINE (UA) AUTO NEGATIVE (NEGATIVE); KETONE, URINE AUTO NEGATIVE (NEGATIVE); LEUKOCYTE ESTERASE, URINE AUTO 1+ (NEGATIVE); NITRITE, URINE AUTO NEGATIVE (NEGATIVE); PROTEIN, URINE AUTO NEGATIVE (NEGATIVE); RBC, URINE AUTO 0 /HPF (0-3); SPECIFIC GRAVITY URINE AUTO 1.005 (1.002-1.035); SQUAMOUS EPITHELIAL CELL UR AU 0 /HPF (0-6); UROBILINOGEN, URINE AUTO 0.2 mg/dL (0.0-2.0); WBC, URINE AUTO 8 /HPF (0-3)
== END ==
LOC: M SFHCPLAZ 12:46
PROVIDERS: ATTEND Student in an Organized Health Care Education/Training Program
DX: Z00.00 Encounter for general adult medical examination without abnormal findings (principal)

== ENCOUNTER → 2024-10-20 | Outpatient (CLI) | payer MEDICARE, BC | LOC: M RAD 14:13 | PROVIDERS: ATTEND Radiology Diagnostic Radiology | DX: I83.93 Asymptomatic varicose veins of bilateral lower extremities (principal); I83.893 Varicose veins of bilateral lower extremities with other complications ==

== ENCOUNTER → 2024-10-28 | Outpatient (POV) | payer MEDICARE ==
[~2024-10-28] VITALS: Ht 144.8 cm; Wt 47.6 kg
[2024-10-28 11:15] VITALS: BP 158/94; O2SAT 98
== END ==
LOC: M IRPOV 10:48
PROVIDERS: ATTEND Registered Nurse School
DX: I87.332 Chronic venous hypertension (idiopathic) with ulcer and inflammation of left lower extremity (principal); L97.929 Non-pressure chronic ulcer of unspecified part of left lower leg with unspecified severity; I73.9 Peripheral vascular disease, unspecified

== ENCOUNTER → 2024-12-01 | Outpatient (CLI) | payer MEDICARE ==
[~2024-12-01] MED LIST changes: +IBUPROFEN 600 MG TAB PO PRN; +SODIUM CHLORIDE 0.9% 1000 ML XX SCH
[2024-12-01] MEDS: NS (Normal Saline) 0.9% 1,000 ML IV SCH (08:15)
[2024-12-01] MEDS: SODIUM TETRADECYL SULFATE (1%) 20MG/2ML VIAL (SOTRADECOL) IV SCH (08:15)
[2024-12-01 08:19] VITALS: TEMP 97.7
[2024-12-01] MEDS: LIDOCAINE 1% MDV 20 ML VIAL SC SCH (11:20)
[2024-12-01] MEDS: MIDAZOLAM INJ 2 MG/2 ML VIAL IV PRN (11:21)
[2024-12-01 12:15] VITALS: BP 173/84; O2SAT 98
== END ==
LOC: M IRPRO 07:53
PROVIDERS: ATTEND Registered Nurse School
DX: I87.332 Chronic venous hypertension (idiopathic) with ulcer and inflammation of left lower extremity (principal)
CPT/HCPCS: 36468; 36482; 99152; 99153; C1769; J2250; J3010

== ENCOUNTER → 2024-12-02 | Outpatient (CLI) | payer MEDICARE ==
[~2024-12-02] MED LIST changes: -IBUPROFEN 600 MG TAB PO PRN; -SODIUM CHLORIDE 0.9% 1000 ML XX SCH
== END ==
LOC: M RAD 13:25
PROVIDERS: ATTEND Radiology Diagnostic Radiology
DX: I87.2 Venous insufficiency (chronic) (peripheral) (principal); I82.812 Embolism and thrombosis of superficial veins of left lower extremity

== ENCOUNTER → 2024-12-09 | Outpatient (CLI) | payer MEDICARE | LOC: M RAD 12:34 | PROVIDERS: ATTEND Radiology Diagnostic Radiology | DX: I87.2 Venous insufficiency (chronic) (peripheral) (principal); I82.812 Embolism and thrombosis of superficial veins of left lower extremity ==

== ENCOUNTER → 2024-12-21 | Outpatient (POV) | payer MEDICARE ==
[~2024-12-21] VITALS: Ht 142.2 cm; Wt 47.3 kg
[2024-12-21 10:10] VITALS: BP 150/78; O2SAT 98
== END ==
LOC: M IRPOV 09:55
PROVIDERS: ATTEND Registered Nurse School
DX: Z48.812 Encounter for surgical aftercare following surgery on the circulatory system (principal); I87.2 Venous insufficiency (chronic) (peripheral); I08.3 Combined rheumatic disorders of mitral, aortic and tricuspid valves

== ENCOUNTER → 2024-12-31 | Outpatient (CLI) | payer MEDICARE | LOC: M RAD 13:30 | PROVIDERS: ATTEND Radiology Diagnostic Radiology | DX: I87.2 Venous insufficiency (chronic) (peripheral) (principal); M79.662 Pain in left lower leg ==

== ENCOUNTER → 2025-01-06 | Outpatient (POV) | payer MEDICARE ==
[2025-01-06 10:45] VITALS: BP 180/108; O2SAT 98
== END ==
LOC: M IRPOV 10:30
PROVIDERS: ATTEND Thoracic Surgery (Cardiothoracic Vascular Surgery)
DX: Z48.812 Encounter for surgical aftercare following surgery on the circulatory system (principal); I87.312 Chronic venous hypertension (idiopathic) with ulcer of left lower extremity; L97.329 Non-pressure chronic ulcer of left ankle with unspecified severity

== ENCOUNTER → 2025-02-25 | Outpatient (CLI) | payer MEDICARE ==
[~2025-02-25] MED LIST changes: +D5W 1000 ML XX SCH; +ELIQ5TAB4 PO; +IBUPROFEN 600 MG TAB PO PRN
[2025-02-25 09:34] VITALS: TEMP 97.5
[2025-02-25] MEDS: NS (Normal Saline) 0.9% 1,000 ML IV SCH (11:33)
[2025-02-25] MEDS: LIDOCAINE 1% MDV 20 ML VIAL SC SCH (11:33)
[2025-02-25] MEDS: SODIUM TETRADECYL SULFATE (1%) 20MG/2ML VIAL (SOTRADECOL) IV SCH (11:33)
[2025-02-25] MEDS: MIDAZOLAM INJ 2 MG/2 ML VIAL IV PRN (11:34)
[2025-02-25 12:20] VITALS: BP 158/84; O2SAT 98
== END ==
LOC: M IRPRO 09:13
PROVIDERS: ATTEND Registered Nurse School
DX: I83.11 Varicose veins of right lower extremity with inflammation (principal)
CPT/HCPCS: 36471; 36482; 76942; 99152; 99153; C1769; J2250; J3010

== ENCOUNTER → 2025-03-01 | Outpatient (CLI) | payer MEDICARE ==
[~2025-03-01] MED LIST changes: -D5W 1000 ML XX SCH; -IBUPROFEN 600 MG TAB PO PRN
== END ==
LOC: M RAD 08:49
PROVIDERS: ATTEND Registered Nurse School
DX: I83.11 Varicose veins of right lower extremity with inflammation (principal)

== ENCOUNTER → 2025-03-08 | Outpatient (POV) | payer MEDICARE, BC | LOC: M IRPOV 11:30 → EDSTATUS 04-19 12:21 | PROVIDERS: ATTEND Registered Nurse School | DX: I83.11 Varicose veins of right lower extremity with inflammation (principal); Z82.49 Family history of ischemic heart disease and other diseases of the circulatory system; Z83.6 Family history of other diseases of the respiratory system; Z79.01 Long term (current) use of anticoagulants | CPT/HCPCS: 93971; G0463 ==

== ENCOUNTER → 2025-03-08 | Outpatient (CLI) | payer MEDICARE, BC | LOC: M RAD 08:49 | PROVIDERS: ATTEND Registered Nurse School | DX: I87.2 Venous insufficiency (chronic) (peripheral) (principal); Z86.718 Personal history of other venous thrombosis and embolism ==

== ENCOUNTER → 2025-03-29 | Outpatient (CLI) | payer MEDICARE | LOC: M RAD 09:13 | PROVIDERS: ATTEND Registered Nurse School | DX: I83.11 Varicose veins of right lower extremity with inflammation (principal) ==

== ENCOUNTER → 2025-03-31 | Outpatient (POV) | payer MEDICARE | LOC: M IRPOV 10:00 | PROVIDERS: ATTEND Registered Nurse School | DX: I87.2 Venous insufficiency (chronic) (peripheral) (principal); Z79.01 Long term (current) use of anticoagulants; Z79.51 Long term (current) use of inhaled steroids; Z79.899 Other long term (current) drug therapy; Z82.49 Family history of ischemic heart disease and other diseases of the circulatory system; Z83.6 Family history of other diseases of the respiratory system ==